=== PATIENT | female | born 1950 | race Caucasian/White ===

== ENCOUNTER → 2024-06-18 13:11 | Outpatient (REF) | payer MEDICARE, OTHER, SELFPAY ==
[2024-06-18 17:42] LABS: % Basophils 0.9 % (0-2); % Eosinophils 1.3 % (0-6); % Immature Granulocytes 0.2 % (0-0.5); % Lymphocytes 42.7 % (20.5-51.1); % Monocytes 9.1 % (1.7-9.3); % Neutrophils 45.8 % (42.2-75.2); Absolute Basophils 0.1 10^3/uL (0-0.2); Absolute Eosinophils 0.1 10^3/uL (0-0.7); Absolute Lymphocytes 2.3 10^3/uL (1.2-3.4); Absolute Monocytes 0.5 10^3/uL (0.1-0.6); Absolute Neutrophils 2.4 10^3/uL (1.4-6.5); Hematocrit 35.6 % (37.0-47.0); Hemoglobin 11.7 g/dL (12.0-16.0); Mean Corp Hgb Conc. 32.9 g/dL (33.0-37.0); Mean Corpuscular Volume 94.4 fL (81.0-99.0); Mean Platelet Volume 10.8 fL (7.4-10.4); Nucleated Red Blood Cells % 0 %; Platelet Count 207 10^3/uL (130-400); Red Blood Cell Count 3.77 10^6/uL (4.20-5.40); Red Cell Dist. Width 13.8 % (11.5-14.5); White Blood Cell Count 5.3 10^3/uL (4.8-10.8)
[2024-06-18 17:52] LABS: ALT (SGPT) 23 U/L (0-35); AST (SGOT) 28 U/L (14-36); Albumin 4.3 g/dl (3.5-5.0); Alkaline Phosphatase 37 U/L (38-126); Blood Urea Nitrogen 20 mg/dl (7-17); Calcium 9.5 mg/dl (8.4-10.2); Carbon Dioxide 21 mmol/L (22-30); Chloride 107 mmol/L (98-107); Glucose 95 mg/dl (70-99); HDL Cholesterol 73 mg/dl; LDL Cholesterol, Calculated 58 mg/dl; Potassium 4.2 mmol/L (3.5-5.1); Sodium 142 mmol/L (135-145); Total Bilirubin 0.2 mg/dl (0.2-1.3); Total Cholesterol 148 mg/dl (50-199); Total Protein 6.5 g/dl (6.3-8.2); Triglyceride 86 mg/dl (10-149); Very Low Density Lipoprotein 17 mg/dl (0-30); eGFR 52.08
[2024-06-18 18:20] LABS: TSH Reflex To Free T4 0.02 uIU/ml (0.47-4.68)
[2024-06-18 18:50] LABS: Free T4 1.19 ng/dl (0.78-2.19)
== END ==
LOC: HWLAB 13:11
PROVIDERS: ATTENDING PHYSICIAN Family Medicine
DX: I10 Essential (primary) hypertension (principal); E03.9 Hypothyroidism, unspecified; Z86.73 Personal history of transient ischemic attack (TIA), and cerebral infarction without residual deficits; M79.7 Fibromyalgia; G89.4 Chronic pain syndrome
CPT/HCPCS: 36415; 80053; 80061; 84439; 84443; 85025

== ENCOUNTER → 2024-07-11 09:22 | Outpatient (REF) | payer MEDICARE, OTHER, SELFPAY | LOC: HWWDC 09:22 | PROVIDERS: ATTENDING PHYSICIAN Family Medicine | DX: Z12.31 Encounter for screening mammogram for malignant neoplasm of breast (principal) | CPT/HCPCS: 77063; 77067 ==

== ENCOUNTER → 2024-10-10 09:40 | Outpatient (REF) | payer MEDICARE, OTHER, SELFPAY ==
[2024-10-10 13:04] LABS: Blood Urea Nitrogen 17 mg/dl (7-17); Calcium 10.2 mg/dl (8.4-10.2); Carbon Dioxide 22 mmol/L (22-30); Chloride 106 mmol/L (98-107); Glucose 93 mg/dl (70-99); Iron 112 ug/dl (37-170); Potassium 4.6 mmol/L (3.5-5.1); Sodium 138 mmol/L (135-145); eGFR 46.91
[2024-10-10 13:36] LABS: Microalbumin, Random Urine 0.8 mg/dl (0.6-1.7); Microalbumin/creatinine Ratio 13.3 mg/g
[2024-10-10 13:48] LABS: % Basophils 1.1 % (0-2); % Eosinophils 1.1 % (0-6); % Immature Granulocytes 0.2 % (0-0.5); % Lymphocytes 39.8 % (20.5-51.1); % Neutrophils 46.8 % (42.2-75.2); Absolute Basophils 0.1 10^3/uL (0-0.2); Absolute Eosinophils 0.1 10^3/uL (0-0.7); Absolute Lymphocytes 2.2 10^3/uL (1.2-3.4); Absolute Monocytes 0.6 10^3/uL (0.1-0.6); Absolute Neutrophils 2.6 10^3/uL (1.4-6.5); Hemoglobin 12.6 g/dL (12.0-16.0); Mean Corp Hgb Conc. 32.3 g/dL (33.0-37.0); Mean Corpuscular Volume 95.8 fL (81.0-99.0); Mean Platelet Volume 10.7 fL (7.4-10.4); Nucleated Red Blood Cells % 0 %; Platelet Count 215 10^3/uL (130-400); Red Blood Cell Count 4.07 10^6/uL (4.20-5.40); Red Cell Dist. Width 15.1 % (11.5-14.5); White Blood Cell Count 5.6 10^3/uL (4.8-10.8)
[2024-10-10 15:29] LABS: Free T4 1.02 ng/dl (0.78-2.19)
[2024-10-10 15:43] LABS: TSH 1.63 uIU/ml (0.47-4.68)
[2024-10-10 16:02] LABS: Vitamin B12 295 pg/ml (239-931)
== END ==
LOC: HWLAB 09:40
PROVIDERS: ATTENDING PHYSICIAN Family Medicine; REFERRING PHYSICIAN Internal Medicine Rheumatology
DX: E03.9 Hypothyroidism, unspecified (principal); N18.31 Chronic kidney disease, stage 3a; D63.8 Anemia in other chronic diseases classified elsewhere; D51.9 Vitamin B12 deficiency anemia, unspecified
CPT/HCPCS: 36415; 80048; 82043; 82570; 82607; 83540; 84439; 84443; 85025

== ENCOUNTER 2025-01-28 13:15 | Emergency (ER) | payer MEDICARE, OTHER, SELFPAY ==
[2025-01-28 13:22] LABS: Glucose - Point of Care 133 mg/dl (70-99)
--- NOTE | 2025-01-28 13:22 | ED.CVA ---
History of Present Illness
General
Chief Complaint: CVA/TIA Symptoms
Time Seen by Provider: 01/28/25 13:16
Onset of Stroke Symptoms
Onset of symptoms known: Yes
Date of onset of symptoms: 01/28/25
History of Present Illness
History of Present Illness:
TIME OF INITIAL ENCOUNTER: 1:15 PM
HPI: The patient was called as a stroke alert prior to arrival. At 12:45 PM, while awake, the patient got up from a chair and suddenly felt very dizzy and was drifting to one side. She states that the right side of her body feels weird. She had
the same symptoms in 2017 when she was diagnosed with a stroke. She had a similar episode in March 2020 and was admitted here which showed no sign of stroke. She takes baby aspirin.
EXAM:
GENERAL: Well appearing in no distress
HEENT: Moist oral mucosa, no field cuts on exam
CARDIOVASCULAR: No murmurs, normal heart rate, regular rhythm, No chest wall tenderness
PULMONARY: No respiratory distress, breath sounds are clear and equal
ABDOMEN: Soft with no peritoneal signs, no tenderness
NEUROLOGIC: 5 out of 5 strength all extremities, no coordination deficits, questionable decrease sensation of the right side of the face, right upper extremity, and right lower extremity, mild facial asymmetry
PSYCHIATRIC: Appropriate mental status, normal insight and judgement
EXTREMITIES: Nontender, no edema, moves all extremities equally
SKIN: No rash, no lesions
NUMBER AND COMPLEXITY OF PROBLEMS ADDRESSED AT THE ENCOUNTER
� Chronic conditions affecting care: Has had CVA in 2017
� Acute Exacerbation and/or Progression of Chronic Illness: This is an acute problem
� Differential Diagnosis includes: CVA, TIA, hypoglycemia, hypertensive event
AMOUNT AND/OR COMPLEXITY OF DATA TO BE REVIEWED AND ANALYZED
� I performed an independent evaluation of and my interpretation is:
EKG:
CT: Noncontrast head CT negative. CT perfusion study brain, CTA head neck negative.
X-rays:
Laboratory Studies: Initial glucose 133, CBC unremarkable
Other:
� Review of other/old records: In 2016, the patient was admitted in November with a acute left-sided hemispheric stroke
� Clinical information was obtained by an independent historian: I spoke to EMS upon arrival
� Prescriptions/Medications Considered but not given:
� Further testing considered but not performed:
RISK OF COMPLICATIONS AND/OR MORBIDITY OR MORTALITY OF PATIENT MANAGEMENT
� Social determinants of health affecting care: Lives at home
� Discussion with other providers: The patient was seen in the Emergency Department and evaluated by the neurologist on-call Dr. Schneider. He suspects simple partial seizure. This is her 3rd or 4th episode that she has had in her
life.
� Escalation of care including admission/observation vs risk of discharge considered: Neurology recommends continued outpatient management and no clear indication for admission to the hospital.
ANY OTHER UPDATES:
2:45 PM: The patient states that she has a psychiatrist or practicing. She has never been to a neurologist as an outpatient. Dr. Schneider recommended outpatient management. Of note the patient periodically takes benzos and Topamax. She weaned herself
down off of benzos for PTSD in the past.
Past History
Past History
ED Past Medical History: CVA (Left hemispheric November 2016), HTN (Labile hypertension), Hypercholesterolemia, Hypothyroidism, Psychiatric (Anxiety, depression) and Other (Gout,Migraine headaches, rheumatoid arthritis)
ED Past Surgical History: Cholecystectomy
Social History
Tobacco: Former smoker
Alcohol: None
Personal:
Living: with family
Employment: Employed (Psychiatrist)
Family History
Family History: Early CAD
Phy Exam
Physical Exam
Physical Exam:
See HPI
Course
Orders/Labs/Results
Orders:
Orders
01/28/25 13:21
CT BRAIN PERF STROKE ALERT Urgent
Comment:
Reason For Exam: R paresthesias; dizziness
CT HEAD STROKE ALERT W/o Cont Urgent
Comment:
Reason For Exam: R paresthesias; dizziness
CT HEAD/NECK ANG STROKE ALERT Urgent
Comment:
Reason For Exam: R paresthesias; dizziness
01/28/25 13:50
Complete Blood Count/With Diff Urgent
Comprehensive Metabolic Panel Urgent
Abnormal Lab Results
01/28/25 01/28/25
13:20 13:50
RBC 3.97 L 10^6/uL
(4.20-5.40)
MCH 31.5 H pg
(27.0-31.0)
MPV 10.8 H fL
(7.4-10.4)
Chloride 112 H mmol/L
(98-107)
Carbon Dioxide 21 L mmol/L
(22-30)
BUN 23 H mg/dl
(7-17)
Glucose 134 H mg/dl
(70-99)
POC Glucose 133 H mg/dl
(70-99)
01/28/25 13:50
01/28/25 13:50
Vital Signs
Initial and Last Documented VS:
Initial Vital Signs
Pulse Resp Pulse Ox
73 16 99
01/28/25 13:24 01/28/25 13:24 01/28/25 13:24
Last Documented Vital Signs
Pulse Resp BP Pulse Ox
82 15 166/91 100
01/28/25 14:00 01/28/25 14:00 01/28/25 14:00 01/28/25 13:36
*Critical Care Note
Total Time (30-74mins, 75-104mins- exclusive of procedures): Not Applicable
ED Attending Note
-
Portions of this chart may have been created with voice recognition software.� Occasional wrong word or��sound alike� substitutions may have occurred due to the inherent limitations of voice recognition software.
Discharge Plan
Departure
Patient Disposition: Home (Routine Discharge)
Date of Disposition: 01/28/25
Time of Disposition: 14:47
Patient with high blood pressure during this ER visit?: Yes
Discharge Problem:
Partial seizures
Instructions: Dizziness, BLOOD PRESSURE
Prescriptions:
No Action
clonazepam 1 MG tablet
1 mg PO HS
bupropion HCl 300 MG tablet extended release 24 hr
300 mg PO DAILY
aspirin 81 MG tablet,delayed release (DR/EC)
81 mg PO DAILY
labetalol 200 MG tablet
100 mg PO BID
amlodipine 5 MG tablet
2.5 mg PO BID
acetaminophen [Tylenol Arthritis] 650 mg Tablet Extended Release
1,300 mg PO Q8HPRN PRN (Reason: mild pain)
levothyroxine [Synthroid] 75 mcg Tablet
75 mcg PO DAILY
famotidine [Pepcid] 20 mg Tablet
20 mg PO BID
rosuvastatin [Crestor] 40 mg Tablet
40 mg PO DAILY
coQ10 (ubiquinol) 200 mg Capsule
200 mg PO DAILY
Referrals:
Juana Gonsalves MD [Non-Admitting Privileges, Psychiatry]
Kathy Marinelli MD [Family Provider, Family Practice]
Activity Restrictions/Additional Instructions:
Dr. Schneider, the neurologist evaluated in the ED. He suspects that your symptoms could be related to simple partial seizures. I have also given you the contact information for a local neurologist, Dr. Gonsalves. Turn here if worse or other concerns.
Noncontrast CT head, CT perfusion of the brain, CTA of the head and neck all were negative for acute abnormality.
Interventions
Interventions:
*Risk Screen - Suicide Last Done: 01/28/25 14:09
*Neglect/Abuse Screening Last Done: 01/28/25 14:09
ED- Pulmonary Assessment Last Done: 01/28/25 13:29
ED- Neurological Assessment Last Done: 01/28/25 13:49
ED- Cardiac Assessment Last Done: 01/28/25 13:26
Discharge Date and Time
Print Language: ICELANDIC
[2025-01-28 13:31] VITALS: BP 183/76
[2025-01-28 13:45] VITALS: BP 125/97
[2025-01-28 14:00] VITALS: BP 166/91
[2025-01-28 14:01] LABS: % Basophils 0.8 % (0-2); % Eosinophils 1.2 % (0-6); % Immature Granulocytes 0.2 % (0-0.5); % Lymphocytes 43.1 % (20.5-51.1); % Monocytes 6.6 % (1.7-9.3); % Neutrophils 48.1 % (42.2-75.2); Absolute Eosinophils 0.1 10^3/uL (0-0.7); Absolute Lymphocytes 2.2 10^3/uL (1.2-3.4); Absolute Monocytes 0.3 10^3/uL (0.1-0.6); Absolute Neutrophils 2.4 10^3/uL (1.4-6.5); Hematocrit 37.9 % (37.0-47.0); Hemoglobin 12.5 g/dL (12.0-16.0); Mean Corpuscular Hgb 31.5 pg (27.0-31.0); Mean Corpuscular Volume 95.5 fL (81.0-99.0); Mean Platelet Volume 10.8 fL (7.4-10.4); Nucleated Red Blood Cells % 0 %; Platelet Count 198 10^3/uL (130-400); Red Blood Cell Count 3.97 10^6/uL (4.20-5.40); Red Cell Dist. Width 13.2 % (11.5-14.5)
[2025-01-28 14:23] LABS: ALT (SGPT) 28 U/L (0-35); AST (SGOT) 28 U/L (14-36); Albumin 4.8 g/dl (3.5-5.0); Alkaline Phosphatase 40 U/L (38-126); Blood Urea Nitrogen 23 mg/dl (7-17); Calcium 9.6 mg/dl (8.4-10.2); Carbon Dioxide 21 mmol/L (22-30); Chloride 112 mmol/L (98-107); Estimated Creatinine Clearance 41 ml/min; Glucose 134 mg/dl (70-99); Potassium 4.3 mmol/L (3.5-5.1); Sodium 140 mmol/L (135-145); Total Bilirubin 0.4 mg/dl (0.2-1.3); Total Protein 7.1 g/dl (6.3-8.2); eGFR 58.39
--- NOTE | 2025-01-28 19:58 | CON.NEURO ---
Neuro Assessment/Plan
Assessment
Head CT imgs rev'd, chronic left external capsule liner stroke, similar to MRI from 2017 which I also reviewed imgs of
CTA head/neck report rev'd no hemodynamically significant stenosis
CT perfusion 0 core, 0 penumbra
74 year old woman with habitual event, now resolved. occurred at least 4 times since 2017 MRI confirmed stroke which presented similarly.
semiology: dizzy-->right sided weakness-->facial droop-->right sided numbness
as the event is same sequence each time, most likely a simple partial seizure; mutual decision forgo EEG would not change anything
no RX as it is infrequent.
if recur she can chew a Klonopin at home and forgo coming to ED
stroke secondary prevention ASA 81, Crestor 40
d/c home
Consultation
Order
Date of Consultation: 01/28/25
Requesting Provider: Kenny Argueta
Reason for Consult: stroke alert
Subjective/Objective
Subjective Data
Date of Service: January 28, 2025
74 year old woman seen during stroke alert with sudden dizziness, right sided weakness, right side of body sensory change. presented similar as her stroke from 2017
I examined her upon return from CT, and deficits were essentially resolved
on further questioning/chart review,
semiology: dizzy-->right sided weakness-->facial droop-->right sided numbness
Objective Data
Vital Signs
Pulse Resp BP Pulse Ox
82 15 166/91 100
01/28/25 14:00 01/28/25 14:00 01/28/25 14:00 01/28/25 13:36
Lab Results
01/28/25 13:50
01/28/25 13:50
Sodium 140 mmol/L (135-145) 01/28/25 13:50
Potassium 4.3 mmol/L (3.5-5.1) 01/28/25 13:50
BUN 23 mg/dl (7-17) H 01/28/25 13:50
Glucose 134 mg/dl (70-99) H 01/28/25 13:50
Calcium 9.6 mg/dl (8.4-10.2) 01/28/25 13:50
Patient Allergies
No Known Allergies Allergy (Verified 04/03/20 14:35)
Physical Exam
-
AAOx3, speech clear, language intact
VFF, EOMI, face symmetric
grossly full strength
Medications
-
Home Medications
�Medication �Instructions �Recorded
bupropion HCl 300 mg 24 hr tablet, 300 mg PO DAILY Mental health 12/12/16
extended release
clonazepam 1 mg tablet 1 mg PO HS Mental health 12/12/16
aspirin 81 mg tablet,delayed 81 mg PO DAILY Blood clot 12/11/17
release prevention/tx
labetalol 200 mg tablet 100 mg PO BID Blood pressure 04/03/20
acetaminophen 650 mg 1,300 mg PO Q8HPRN PRN mild pain 01/28/25
tablet,extended release
amlodipine 5 mg tablet 2.5 mg PO BID 01/28/25
coQ10 (ubiquinol) 200 mg capsule 200 mg PO DAILY 01/28/25
famotidine 20 mg tablet (Pepcid) 20 mg PO BID 01/28/25
levothyroxine 75 mcg tablet 75 mcg PO DAILY 01/28/25
(Synthroid)
rosuvastatin 40 mg tablet (Crestor) 40 mg PO DAILY 01/28/25
== END 2025-01-28 14:59 | disposition home or self-care (01) ==
LOC: EMR 13:15
PROVIDERS: EMERGENCY PHYSICIAN Emergency Medicine; FAMILY PHYSICIAN Family Medicine; OTHER PHYSICIAN Psychiatry & Neurology Clinical Neurophysiology
DX: R56.9 Unspecified convulsions (principal); R42 Dizziness and giddiness; R29.810 Facial weakness; R20.0 Anesthesia of skin; R53.1 Weakness; G43.909 Migraine, unspecified, not intractable, without status migrainosus; M10.9 Gout, unspecified; E78.00 Pure hypercholesterolemia, unspecified; E03.9 Hypothyroidism, unspecified; I10 Essential (primary) hypertension; F32.A Depression, unspecified; F41.9 Anxiety disorder, unspecified; F43.10 Post-traumatic stress disorder, unspecified; M06.9 Rheumatoid arthritis, unspecified; Z86.73 Personal history of transient ischemic attack (TIA), and cerebral infarction without residual deficits; Z87.891 Personal history of nicotine dependence; Z79.82 Long term (current) use of aspirin; Z79.899 Other long term (current) drug therapy; Z79.890 Hormone replacement therapy; Z90.49 Acquired absence of other specified parts of digestive tract
CPT/HCPCS: 99284; 0042T; 70450; 70496; 70498; 80053; 82962; 85025; Q9967

== ENCOUNTER → 2025-04-11 11:02 | Outpatient (REF) | payer MEDICARE, OTHER, SELFPAY ==
[2025-04-11 16:23] LABS: Albumin 4.6 g/dl (3.5-5.0); Blood Urea Nitrogen 18 mg/dl (7-17); Calcium 9.1 mg/dl (8.4-10.2); Carbon Dioxide 22 mmol/L (22-30); Chloride 110 mmol/L (98-107); Glucose 95 mg/dl (70-99); Potassium 4.5 mmol/L (3.5-5.1); Sodium 139 mmol/L (135-145); eGFR 51.75
== END ==
LOC: HWLAB 11:02
PROVIDERS: ATTENDING PHYSICIAN Internal Medicine; FAMILY PHYSICIAN Family Medicine
DX: R79.89 Other specified abnormal findings of blood chemistry (principal); I10 Essential (primary) hypertension; E03.9 Hypothyroidism, unspecified
CPT/HCPCS: 36415; 80069; 82088; 82384; 82570; 83835; 84155; 84156; 84165; 84244; 84443